=== PATIENT | female | born 1975 | race Caucasian/White ===

== ENCOUNTER 2018-04-02 07:47 | Emergency (ER) | payer MEDICARE, MEDICAID ==
[~2018-04-02] VITALS: Ht 167.6 cm; Wt 74.1 kg
[2018-04-02 07:51] VITALS: Ht 167.6 cm; Wt 74.1 kg
[2018-04-02] MEDS ORDERED: TENORMIN50 MG PO (07:53)
[2018-04-02] MEDS ORDERED: NORCO 7.5/325 T1 TA1 PO (08:09)
[2018-04-02 08:23] VITALS: BP 138/94
== END 2018-04-02 08:34 | disposition home or self-care (01) ==
LOC: D.ER 07:47
DX: M54.5 Low back pain (principal); I10 Essential (primary) hypertension; F17.200 Nicotine dependence, unspecified, uncomplicated